=== PATIENT | male | born 1985 | race Caucasian/White ===

== ENCOUNTER 2019-11-04 01:45 | Outpatient (CLI) | payer OTHER, SELFPAY ==
[2019-11-04 19:30] LABS: SARS-CoV-2 RNA PCR Negative
== END 2019-11-04 01:46 | disposition home or self-care (01) ==
LOC: ANHCOVIDDT 01:46
PROVIDERS: Visit Provider Surgery
DX: Z01.812 Encounter for preprocedural laboratory examination (principal); Z11.59 Encounter for screening for other viral diseases
CPT/HCPCS: 87635; C9803; U0003

== ENCOUNTER 2019-11-04 08:47 | Outpatient (CLI) | payer OTHER, SELFPAY | END 2019-11-04 08:48 | disposition home or self-care (01) | PROVIDERS: Visit Provider Surgery | DX: Z01.812 Encounter for preprocedural laboratory examination (principal); K40.90 Unilateral inguinal hernia, without obstruction or gangrene, not specified as recurrent | CPT/HCPCS: 36415; 86850; 86900; 86901 ==

== ENCOUNTER 2019-11-07 00:49 | Day surgery (SDC) | payer OTHER, SELFPAY ==
[2019-10-27 09:20] VITALS: BMI 25.7
[2019-11-07] MEDS: KETOROLAC 15 MG/ML VIAL (*BKC) IV PUSH (10:45)
[2019-11-07] MEDS: ACETAMINOPHEN 500 MG TABLET 1000 MG PO (10:46)
[2019-11-07] MEDS: LACTATED RINGERS 1,000 ML 30 ML IV CONT ×2 (10:49→15:11)
[2019-11-07 10:56] VITALS: BP 135/85; PULSE 73; RESP 14; TEMP 36.8; O2SAT 99; BMI 25.0
--- NOTE | 2019-11-07 11:28 | WPDANESEPPF ---
Anes - Initial Pre Proc Eval Procedure: Operation Date: 11/07/19 12:00 Proposed Procedures p Laparoscopic Right Inguinal Hernia Repair With Mesh, Davinci Assisted - Chadd Crump DO Date/Time: 11/07/19 11:28 Surgeon: Chadd Crump DO Pre Op Diagnosis: Right Inguinal Hernia Patient Data Age: 33 Gender: M Height: 6 ft Weight: 83.5 kg Last Vital Signs Temp 36.8 C 11/07/19 10:56 Pulse 73 11/07/19 10:56 Resp 14 11/07/19 10:56 BP 135/85 11/07/19 10:56 Pulse Ox 99 11/07/19 10:56 Allergies Allergy/AdvReac Type Severity Reaction Status Date / Time No Known Allergies Allergy Unverified 11/07/19 11:12 Home Medications Medication Instructions Recorded Confirmed Type testosterone 100 mg/mL 150 mg IM WEEKLY 10/12/19 10/27/19 History intramuscular suspension cholecalciferol (vitamin D3) 125 mcg PO DAILY 10/27/19 11/07/19 History [Vitamin D3] magnesium 1 tablet PO DAILY 10/27/19 11/07/19 History Patient hx anesthesia problems: other (occas motion sickness) Family hx anesthesia problems: none PMFSH Surgical History Surgical History H/O shoulder surgery Family History Family History Mother Hypertension COPD (chronic obstructive pulmonary disease) case management patient Social History Social History Smoking status: Never smoker Alcohol intake: current Substance use: unknown 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 Questions were solicited and answers provided to the satisfaction of the patient/family/POA.
--- NOTE | 2019-11-07 12:09 | WPDHPUPDATE1 ---
History and Physical Update Update Date/Time: 11/07/19 12:09 History and Physical has been reviewed, including an updated exam of the patient. There are NO changes in the patient's condition. Risks, benefits, and alternatives have been discussed and questions answered. Patient agrees to proceed with procedure.
--- NOTE | 2019-11-07 12:56 | SUR.PREOP ---
PROCEDURE DELAYED DUE TO PROCEDURE PREVIOUS USING DA VINCHI WENT LONGER THAN ANTICIPATED. PT AWARE AND SAID HE IS OK WITH THIS.
[2019-11-07] MEDS: ceFAZolin 2 GM/D5W 50 ML 2 GM/50 ML BAG IVPB (13:22)
[2019-11-07] MEDS: BUPIVACAINE/EPINEPHRINE 0.5% 30 ML VIAL INFILTRATE (14:02)
--- NOTE | 2019-11-07 14:43 | PM.PROC ---
Procedure Note - Detailed Date of procedure: 11/07/19 Pre-op diagnosis: Right Inguinal Hernia Post-op diagnosis: same (Indirect PRH) Procedure performed: Laparoscopic right inguinal hernia repair with Progrip mesh, da Neri assisted Description of procedure: Procedure as well as risks, benefits, and alternatives were discussed with the patient. Written consent was obtained and placed in chart prior to procedure. Patient was brought back to surgical suite. He was placed supine on operating table. Time-out was done to confirm patient and procedure. He was then intubated by Anesthesia Department. His abdomen was prepped and draped in sterile fashion using chlorhexidine prep. 0.5% bupivacaine with epinephrine was infiltrated at each location for incision. A 12 millimeter transverse incision was made just superior to the umbilicus using a 15 blade scalpel. Blunt dissection was carried out down to the linea alba. A vertical incision was made at the linea alba using a 15 blade scalpel. The peritoneum was then bluntly entered. A 12 millimeter trocar was inserted and carbon dioxide insufflation was used to create a pneumoperitoneum. A camera was inserted and the abdominal cavity was inspected. The patient was placed in slight Trendelenburg position. An 8 millimeter incision was made on the right lateral abdomen and an 8 millimeter trocar was inserted under direct visualization. Another 8 millimeter incision was made in the left lateral abdomen and an 8 millimeter trocar was inserted under direct visualization. The robotic arms were brought up to the patient's bedside and secured to the ports. The camera and instruments were inserted. I then moved over to the robotic console and took control of the camera and instruments. After careful inspection of the abdominal cavity, I began scoring the peritoneum along the right lower quadrant using scissors with electrocautery. The preperitoneal plane was entered and this was carefully dissected caudally along the inferior epigastric vessels. Careful dissection with scissors with electrocautery and blunt dissection was used to continue this dissection. I dissected far enough laterally to allow for mesh placement, and also dissected medially to identify the pubic arch and Roberto's ligament. The hernia sac was identified and carefully dissected posteriorly. The cord contents were also identified and the peritoneum was carefully dissected far enough posteriorly to allow for mesh placement. Once an adequate pocket was created, I then placed the mesh within the preperitoneal pocket and carefully unfolded it. The mesh was centered on the hernia defect with adequate overlap circumferentially. The inferior edge of the mesh was inspected to ensure that it was far enough away from the peritoneal edge. The mesh appeared in proper position overlying the entire myopectineal orifice. The peritoneum was then closed over the mesh using a 3-0 V-lock running absorbable suture. The robotic instruments were removed. The robotic arms were disengaged from the ports and moved away from the bedside. The patient was flattened out in bed, the ports were removed under direct visualization, and the pneumoperitoneum was released. The fascia of the umbilical incision was approximated using an 0 Vicryl [id number] suture. The skin of the incisions was approximated using 4-0 Monocryl subcuticular suture, and Exofin glue was applied on top. The patient was awakened from anesthesia, extubated, and transferred to recovery. Implants: Progrip Mesh 10cm x 15cm Anesthesia: GETA and local (0.5% bupivicaine with epi) Surgeon: Chadd Crump DO Estimated blood loss (mL): 5 Drains: No Packing: No Pathology: none sent Complications: No immediate complications Condition: stable Disposition: same day Findings: Claudio is a 33 y/o male who presents with a right inguinal hernia. He reports first experiencing symptoms that started about 2 years
[2019-11-07 14:57] VITALS: BP 114/89; PULSE 66; RESP 14; TEMP 36.1; O2SAT 99
[2019-11-07 15:10] VITALS: BP 144/87; PULSE 57; RESP 13; O2SAT 100
[2019-11-07 15:25] VITALS: BP 142/89; PULSE 58; RESP 14; O2SAT 98
[2019-11-07 15:35] VITALS: BP 145/82; PULSE 52; RESP 14
[2019-11-07 16:05] VITALS: BP 151/93; PULSE 62; RESP 14
== END 2019-11-07 16:40 | disposition home or self-care (01) ==
PROVIDERS: Visit Provider Surgery
PROC: 8E0Y4CZ Robotic Assisted Procedure of Lower Extremity, Percutaneous Endoscopic Approach (ICD-10-PCS; CPT 49650; principal; 2019-11-07 12:00)
DX: K40.90 Unilateral inguinal hernia, without obstruction or gangrene, not specified as recurrent (principal)
CPT/HCPCS: 49650; S2900; A9270; C1781; J0690; J1100; J1885; J2250; J2405; J2704; J2710; J3010; J7030; J7120